=== PATIENT | male | born 1985 | race African-American/Black ===

== ENCOUNTER 2016-08-07 08:21 | Emergency (ER) | payer MEDICAID ==
[~2016-08-07] VITALS: Ht 170.2 cm; Wt 107.0 kg
[~2016-08-07 08:21] MED LIST: ALBU8.5H IH
[2016-08-07 12:04] VITALS: BP 118/79
== END 2016-08-07 12:06 | disposition home or self-care (01) ==
LOC: EMS 08:24
DX: J02.0 Streptococcal pharyngitis (principal); J06.9 Acute upper respiratory infection, unspecified; J45.909 Unspecified asthma, uncomplicated; Z88.8 Allergy status to other drugs, medicaments and biological substances
CPT/HCPCS: 87430; 99283

== ENCOUNTER 2017-05-13 20:33 | Emergency (ER) | payer MEDICAID ==
[~2017-05-13] VITALS: Ht 170.2 cm; Wt 115.9 kg
[~2017-05-13 20:33] MED LIST changes: -ALBU8.5H IH; +ALBU8.5H8 IH
[2017-05-13 21:33] LABS: INFLUENZA TYPE A NEGATIVE FOR TYPE A (NEGATIVE); INFLUENZA TYPE B POSITIVE FOR TYPE B (NEGATIVE)
[2017-05-13 22:13] VITALS: BP 129/83
== END 2017-05-13 22:41 | disposition home or self-care (01) ==
LOC: EMS 20:34
DX: J11.1 Influenza due to unidentified influenza virus with other respiratory manifestations (principal); J45.909 Unspecified asthma, uncomplicated; Z88.8 Allergy status to other drugs, medicaments and biological substances
CPT/HCPCS: 87804; 99285

== ENCOUNTER 2019-07-13 16:00 | Emergency (ER) | payer MEDICAID ==
[~2019-07-13] VITALS: Ht 165.1 cm; Wt 95.5 kg
[2019-07-13] MEDS ORDERED: LIDOCAINE 5% TRANSDERMAL PATCH TD ONE (17:00)
[2019-07-13] MEDS ORDERED: METHOCARBAMOL 500 MG TABLET PO ONE (17:00)
[2019-07-13] MEDS ORDERED: IBUPROFEN 800 MG TABLET PO ONE (17:00)
[2019-07-13 18:15] VITALS: BP 146/90
== END 2019-07-13 18:41 | disposition home or self-care (01) ==
LOC: EMS 16:02
DX: M54.5 Low back pain (principal); J45.909 Unspecified asthma, uncomplicated; Z88.5 Allergy status to narcotic agent; Z91.013 Allergy to seafood
CPT/HCPCS: 72100

== ENCOUNTER 2021-03-30 09:06 | Emergency (ER) | payer MEDICAID ==
[~2021-03-30] VITALS: Ht 172.7 cm; Wt 110.0 kg
[2021-03-30 09:14] VITALS: BP 131/56
== END 2021-03-30 10:14 | disposition home or self-care (01) ==
LOC: EMS 09:06
DX: M54.12 Radiculopathy, cervical region (principal)
CPT/HCPCS: 99283

== ENCOUNTER 2024-06-08 01:19 | Emergency (ER) | payer MEDICAID ==
[~2024-06-08] VITALS: Ht 170.2 cm; Wt 116.4 kg
[2024-06-08 01:32] VITALS: BP 157/97; PULSE 110; RESP 18; TEMP 98.7; O2SAT 99
[2024-06-08 01:58] LABS: COVID AG,FIA SOURCE NASAL SWAB
[2024-06-08 02:20] LABS: INFLUENZA TYPE A NEGATIVE FOR TYPE A (NEGATIVE); INFLUENZA TYPE B NEGATIVE FOR TYPE B (NEGATIVE); SARS-COV2 (COVID) ANTIGEN,FIA Negative (Negative)
[2024-06-08] MEDS: IBUPROFEN 400 MG TABLET PO ONE (05:29)
[2024-06-08] MEDS: FLUTICASONE PROPIONATE 50 MCG/SPRAY 16 GM NASAL SPRAY NASAL ONE (05:29)
[2024-06-08] MEDS: CETIRIZINE HCL 10 MG TABLET PO ONE (05:29)
[2024-06-08] MEDS ORDERED: CETI-450 PO (05:40)
== END 2024-06-08 05:55 | disposition home or self-care (01) ==
LOC: EMS 01:19
DX: H93.13 Tinnitus, bilateral (principal); R09.81 Nasal congestion; H74.93 Unspecified disorder of middle ear and mastoid, bilateral; J45.909 Unspecified asthma, uncomplicated; Z98.890 Other specified postprocedural states; Z91.040 Latex allergy status; Z88.8 Allergy status to other drugs, medicaments and biological substances; Z20.822 Contact with and (suspected) exposure to COVID-19
CPT/HCPCS: 87804; 99284; Z7502; Z7610